=== PATIENT | female | born 1945 | race Caucasian/White ===

== ENCOUNTER 2024-11-06 16:34 | Emergency (ER) | payer MEDICARE, OTHER ==
[~2024-11-06 16:34] MED LIST: Sodium Chloride 0.9% 10 ML Syringe FLUSH PRN
[2024-11-06] MEDS ORDERED: Sodium Chloride 0.9% 10 ML Syringe FLUSH SCH (16:45)
[2024-11-06 16:53] LABS: BASOPHILS ABSOLUTE AUTO 0.03 10^3/uL (0.00-0.50); BASOPHILS PERCENT AUTO 0.2 % (0-1); HEMATOCRIT 42.6 % (37.0-47.0); IMMATURE GRAN ABSOLUTE AUTO 0.01 10^3/uL (0.00-0.49); IMMATURE GRAN PERCENT AUTO 0.1 % (0.0-4.9); LYMPHOCYTES ABSOLUTE AUTO 0.63 10^3/uL (0.60-5.00); LYMPHOCYTES PERCENT AUTO 4.1 % (24-44); MEAN CORPUSCULAR HEMOGLOBIN 30.3 pg (27.0-32.0); MEAN CORPUSCULAR HGB CONC 32.9 g/dL (32.0-36.0); MEAN CORPUSCULAR VOLUME 92.2 fL (83.0-97.0); MONOCYTES ABSOLUTE AUTO 1.03 10^3/uL (0.00-1.50); MONOCYTES PERCENT AUTO 6.7 % (0-10); NEUTROPHILS PERCENT AUTO 88.9 % (41-71); PLATELET COUNT,PLT 294 10^3/uL (150-400); RED BLOOD CELL COUNT 4.62 x10^6/uL (4.00-5.50); WHITE BLOOD CELL COUNT,WBC 15.4 10^3/uL (4.0-11.0)
[2024-11-06 17:09] LABS: ALANINE AMINOTRANSFERASE,ALT 38 U/L (12-78); ALBUMIN 3.9 g/dL (3.4-5.0); ALKALINE PHOSPHATASE 65 U/L (46-116); ASPARTATE AMNIOTRANSFERASE,AST 29 U/L (15-37); BILIRUBIN TOTAL 0.5 mg/dL (0.0-1.0); BLOOD UREA NITROGEN,BUN 21 mg/dL (7-18); CALCIUM 9.5 mg/dL (8.4-10.1); CARBON DIOXIDE,CO2 27 mmol/L (21-32); CHLORIDE,CL 108 mEq/L (98-106); CREATININE 0.9 mg/dL (0.6-1.0); GLUCOSE RANDOM 110 mg/dL (75-99); POTASSIUM,K 3.7 mEq/L (3.5-5.0); SODIUM,NA 147 mEq/L (136-145)
[2024-11-06 17:14] LABS: ESTIMATED GFR 66 mL/min (>=60)
[2024-11-06 17:24] LABS: INR 1.01 (0.92-1.18); PROTHROMBIN TIME 10.5 SEC (9.3-11.3); PTT,PARTIAL THROMBOPLSTIN TIME 21.2 SEC (20.0-30.0)
[2024-11-06 17:28] LABS: APPEARANCE,URINE CLEAR (CLEAR); BILIRUBIN,URINE NEGATIVE (NEGATIVE); COLOR,URINE YELLOW (YELLOW); GLUCOSE,URINE NEGATIVE (NEGATIVE); KETONES,URINE 15 mg/dL (NEGATIVE); LEUKOCYTE ESTERASE,URINE NEGATIVE (NEGATIVE); NITRITE,URINE NEGATIVE (NEGATIVE); OCCULT BLOOD,URINE TRACE-INTACT (NEGATIVE); PH,URINE 5.5 (4.5-8.0); PROTEIN,URINE 100 mg/dL (NEGATIVE); UROBILINOGEN,URINE 0.2 EU/dL (0.2-1.0)
[2024-11-06 17:36] LABS: AMORPHOUS SEDIMENT,URINE MODERATE /HPF (NOT SEEN); BACTERIA,URINE OCCASIONAL /HPF (NOT SEEN); EPITHELIAL CELLS,URINE MANY /HPF (NOT SEEN); RBC,URINE 0-5 /HPF (0-5); WBC,URINE 0-5 /HPF (0-5)
== END 2024-11-06 18:55 ==
LOC: CC.ED 16:34
DX: I63.412 Cerebral infarction due to embolism of left middle cerebral artery (principal); Z79.890 Hormone replacement therapy; Z79.899 Other long term (current) drug therapy
CPT/HCPCS: 36415; 51702; 70450; 71045; 80053; 81001; 84484; 85025; 85610; 85730; 93005; 93010; 99284; 99285